=== PATIENT | female | born 1960 | race Hispanic/Latino ===

== ENCOUNTER 2017-12-24 10:15 | Outpatient (CLI) | payer OTHER ==
--- NOTE | 2017-12-24 16:02 | MMO ---
BILATERAL SCREENING MAMMOGRAMS: Date: 12/24/17 Comparison made to prior exams from 2013 and 2016. This patient's mammogram was interpreted with the assistance of computer-aided detection. FINDINGS: Scattered fibroglandular densities. No evidence of mass, distortion, or suspicious calcification. No evidence of significant interval change. Recommend one year follow-up. IMPRESSION: BIRADS 1: Negative POS: JO
== END 2017-12-24 10:16 | disposition home or self-care (01) ==
LOC: SCSMAMMO 10:15
PROVIDERS: ATTEND Nurse Practitioner Family
DX: Z12.31 Encounter for screening mammogram for malignant neoplasm of breast (principal)
CPT/HCPCS: 77067

== ENCOUNTER 2019-08-29 10:53 | Emergency (ER) | payer OTHER ==
[2019-08-30 12:16] LABS: SARS-CoV-2 MS2 Positive; SARS-CoV-2 N Gene Positive; SARS-CoV-2 S Gene Positive; SARS-CoV-2 orf1ab Positive
== END 2019-08-29 11:19 | disposition home or self-care (01) ==
LOC: ERS 10:53
DX: U07.1 COVID-19 (principal); F32.9 Major depressive disorder, single episode, unspecified; E11.9 Type 2 diabetes mellitus without complications; Z79.899 Other long term (current) drug therapy
CPT/HCPCS: 87635; 99283; U0003

== ENCOUNTER 2020-03-25 14:30 | Outpatient (CLI) | payer OTHER ==
--- NOTE | 2020-03-25 16:57 | MMO ---
Bilateral MAMMO Bilat Screen [facility]. CLINICAL HISTORY: Patient is 59 years old and is seen for screening. The patient has no family history of breast cancer. The patient has no personal history of cancer. VIEWS: The views performed were: bilateral craniocaudal with tomosynthesis and bilateral mediolateral oblique with tomosynthesis. FILMS COMPARED: The present examination has been compared to prior imaging studies performed at [facility] on 01/09/2013, 01/15/2014 and 12/03/2016. This study has been interpreted with the assistance of computer-aided detection. MAMMOGRAM FINDINGS: There are scattered fibroglandular densities. There are stable benign appearing calcifications seen in both breasts. There are no suspicious masses, suspicious calcifications, or new areas of architectural distortion. IMPRESSION: THERE IS NO MAMMOGRAPHIC EVIDENCE OF MALIGNANCY. A ROUTINE FOLLOW-UP MAMMOGRAM IN 1 YEAR IS RECOMMENDED. THE RESULTS OF THIS EXAM WERE SENT TO THE PATIENT. ACR BI-RADS Category 2 - Benign finding MAMMOGRAPHY NOTE: 1. A negative mammogram report should not delay a biopsy if a dominant of clinically suspicious mass is present. 2. Approximately 10% to 15% of breast cancers are not detected by mammography. 3. Adenosis and dense breasts may obscure an underlying neoplasm. Reported by: SAY ARMSTRONG MD Electonically Signed: [id number]
== END 2020-03-25 14:31 | disposition home or self-care (01) ==
LOC: BICMAMMO 14:30
PROVIDERS: ATTEND Nurse Practitioner Family
DX: Z12.31 Encounter for screening mammogram for malignant neoplasm of breast (principal)
CPT/HCPCS: 77063; 77067